=== PATIENT | male | born 1990 | race African-American/Black ===

== ENCOUNTER 2017-05-09 07:12 | Day surgery (SDC) | payer OTHER ==
[2017-05-09] MEDS ORDERED: CLINDAMYCIN 600 MG/50 ML 50 ML IV ONE (07:30)
[2017-05-09] MEDS ORDERED: LACTATED RINGERS 1,000 ML IV ONE ×2 (08:01→12:10)
[2017-05-09] MEDS ORDERED: KETOROLAC 30 MG/ML VIAL IVP ONE (09:00)
[2017-05-09] MEDS ORDERED: ACETAMINOPHEN 1,000 MG/100 ML 100 ML IV ONE (09:00)
[2017-05-09] MEDS ORDERED: ONDANSETRON 4 MG/2 ML VIAL IVP ONE (09:00)
[2017-05-09] MEDS ORDERED: LIDOCAINE-MPF 2% 5 ML VIAL IM ONE (09:00)
[2017-05-09] MEDS ORDERED: PROPOFOL 200 MG/20 ML VIAL IVP ONE (09:00)
[2017-05-09] MEDS ORDERED: KETAMINE 500 MG/10 ML VIAL IVP ONE (09:00)
[2017-05-09] MEDS ORDERED: fentaNYL 100 MCG/2 ML VIAL IVP ONE (09:00)
[2017-05-09] MEDS ORDERED: DEXAMETHASONE 4 MG/ML VIAL IVP ONE (09:00)
[2017-05-09] MEDS ORDERED: MIDAZOLAM 2 MG/2 ML VIAL IVP ONE (09:00)
[2017-05-09] MEDS ORDERED: BUPIVACAINE 0.25% PF 30 ML VIAL SUBQ ONE ×2 (09:46)
[2017-05-09] MEDS: fentaNYL 100 MCG/2 ML VIAL ONE ×2 (12:04→12:10)
--- NOTE | 2017-05-09 12:33 | XRAY Report ---
THREE VIEW RIGHT HAND: 05/09/2017 CLINICAL INDICATION: Postop. FINDINGS: AP, lateral, and oblique views of the right hand demonstrate posterior plate and screw fus ion of the 4th carpometacarpal joint. There is no evidence of acute fracture or immediate hardware co mplication. Splint material obscures fine osseous detail. IMPRESSION: POSTERIOR PLATE AND SCREW FUSION OF THE 4TH CARPOMETACARPAL JOINT. JOB #: [id number] EXT JOB #:[id number]
[2017-05-09] MEDS ORDERED: oxyCODONE 5 MG TABLET ONE (12:41)
[2017-05-09 13:27] VITALS: BP 123/73
--- NOTE | 2017-05-10 10:33 | OPERATIVE REPORT ---
DATE OF SURGERY: 05/09/2017 00:00:00 PREOPERATIVE DIAGNOSES 1. Right fourth carpometacarpal arthritis. 2. Right wrist carpal bossing. POSTOPERATIVE DIAGNOSES 1. Right fourth carpometacarpal arthritis. 2. Right wrist carpal bossing. PROCEDURES PERFORMED 1. Right fourth carpometacarpal arthrodesis. 2. Right wrist carpal boss excision. SURGEON: Lisandro Ashby MD. DIRECTOR OF CONSTRUCTION: Ginna Zamarripa MD. ANESTHESIA: General. POSTOPERATIVE PLAN: Ulnar gutter splint for 2 weeks. For 2-6 weeks, short ulnar gutter cast to allow for finger motion. At 6 weeks, he will get x-rays out of his cast. We will also advance his activity to perform range of motion exercises. Strengthening can begin at 3 months and when there is evidence of fusion. INDICATIONS FOR SURGERY: A 26-year-old male who sustained a fracture to the base of the fourth metacarpal in 05/2016. This was associated with a dislocation of the fifth metacarpal. He underwent a cast with a molded reduction , but went on to a symptomatic malunion and secondary arthritis of the fourth CMC. The fifth CMC was uninvolved. A CT scan confirmed subluxation and complete loss of joint space at the fourth, as well as an anatomic reduction and maintenance of the joint space at the fifth. Patient also developed a large boss in the dorsum of the wrist, which was irritated by tendon motion. The risks, benefits, and alternatives were discussed with the patient. His mom believes that the boss was symptomatic, as well as the joint itself being symptomatic and destroyed. I therefore recommended arthrodesis, as well as boss excision. The risks included pain, bleeding, infection, damage to nearby structures to include the dorsal ulnar branch, need for further surgery, malunion, nonunion. He signed a consent form. SURGICAL FINDINGS: A large boss was excised, complete destruction of the base of the fourth metacarpal articular surface was seen. IMPLANTS: 1/4 tubular plate by [employer] [facility], 2.7 mm screws x5, cortical fully threaded. ANTIBIOTICS: Weight based clindamycin. ESTIMATED BLOOD LOSS: 5 mL. URINE OUTPUT: Not recorded. INTRAVENOUS FLUIDS: 900 mL. TOURNIQUET TIME: 99 minutes at 200 mmHg. SPECIMENS: None. COMPLICATIONS: None. DISPOSITION: Stable to PACU. DEEP VENOUS THROMBOSIS PROPHYLAXIS: Early frequent ambulation. SCDs while in the hospital. PROCEDURE IN DETAIL: Patient was met in the preoperative area on the morning of the procedure. His operative extremity was signed, and consent was verified. He desired to proceed. He was brought to the operating room and surrendered to Anesthesia. Once general anesthesia had been obtained, he was placed in the supine position with a hand table. All bony prominences were well-padded. A tourniquet was applied to the upper arm. The arm was prepped and draped in the standard sterile fashion. A surgical timeout was held where we confirmed the patient's identity, procedure, allergies, antibiotics, images; all were in agreement and we proceeded. A 5 cm incision was made directly over the boss, and blunt scissor dissection was used down to the extensor tendons. The fourth extensor tendon with its accompanying commissural bands was identified. The tendon most readily was retracted radially. Therefore, dissected the tendons radially using the interval between the fourth and the fifth. We then came down onto the second capsule tissue, and a knife was used to longitudinally transect this. We dissected the capsular tissue and periosteum off of the base of the fourth, as well as the hamate, taking care to not dissect into the fifth CMC, third CMC, or the capitate joint. Only the capsule that was required for visualization was elevated. Satisfied with our exposure, we then used a rongeur to take down the carpal boss, saved those bone chips for later bone grafting. A rasp was then used to rasp the dorsal surface completely flat. This was collinear with the shaft of the fourth metacarpal. Satisfied with the boss excision, we then pulled traction on the fourth digit, and using sharp osteotomes and curettes, removed all of the remaining cartilage from the fourth CMC joint, taking care to not disrupt the fifth CMC joint. Following removal of the cartilage, 0.125 mm K-wire was brought in and perforated the hamate 5 times and the base of the fourth metacarpal 5 times. We then irrigated the wound copiously. I then placed bone graft within the fourth CMC joint. The plate was bent to contour to the fourth CMC joint prior to application, actually over-bent it slightly. The plate was then applied and X- rays were taken to confirm plate size and position. A K-wire was used to provisionally hold it in place. I then placed 2 screws into the hamate. I took 2 mm off of their measured length to ensure they did not dent the volar cortex. X-rays confirmed good plate position and screw position. There was excellent purchase on the screws. I then placed the next screw in most proximally towards the joint. This was done in compression fashion. X-rays confirmed position. I placed another screw in compression fashion in the second position from the joint into the fourth metacarpal. The first compression screw was loosened slightly prior to fully seating the second. The final screw was then placed further in the shaft, and x-rays confirmed screw position. We took oblique x-rays to confirm we did not disrupt the third or fifth ray and that the screw tips were not proud volarly at the hamate or fourth metacarpal. Satisfied with our imaging, we then lightly irrigated and closed in a layered fashion. The capsule was a very thick layer and provided a barrier between the plate and the extensor tendons. We then reapproximated the extensor tendons into their location and closed the skin with 4-0 nylon in a horizontal mattress ; 10 mL of 0.25% Marcaine was instilled about the wound. Xeroform and a sterile dressing was applied. An ulnar gutter splint was applied with the DIPs free to allow for slight motion. The patient was awakened and transferred to the recovery room. Flat plate x-rays were taken in the recovery room but were not available at time of dictation. JOB #: [id number] [facility] JOB #:[id number] AVELINA
== END 2017-05-09 07:13 | disposition home or self-care (01) ==
LOC: SDS 07:12
PROVIDERS: ATTEND Orthopaedic Surgery
PROC: 0PB Upper Bones, Excision (ICD-10-PCS; 2017-05-09)
PROC: 0RGU04Z Fusion of Right Metacarpophalangeal Joint with Internal Fixation Device, Open Approach (ICD-10-PCS; principal; 2017-05-09 09:00)
DX: M19.041 Primary osteoarthritis, right hand (principal); M77.9 Enthesopathy, unspecified; F17.210 Nicotine dependence, cigarettes, uncomplicated
CPT/HCPCS: 25130; 26843; 73130; A9270; C1713; J0131; J7120

== ENCOUNTER 2017-12-05 20:05 | Emergency (ER) | payer OTHER ==
[2017-12-05 20:14] VITALS: BP 134/83
[2017-12-05] MEDS ORDERED: HYDROcod/ACET 5/325 Prepack 4 PO STA (20:57)
[2017-12-05] MEDS ORDERED: HYDROcod/ACETAM 5/325 MG TABLET PO STA (20:57)
[2017-12-05] MEDS ORDERED: IBUPROFEN 800 MG TABLET PO STA (20:57)
--- NOTE | 2017-12-05 21:00 | ED Physician Documentation ---
PD HPI LOWER EXT INJURY - Stated complaint Stated Complaint: LEG PAIN - Chief complaint Chief Complaint: Ext Problem - History obtained from History obtained from: Patient - History of Present Illness PD HPI LOW EXT INJURY LOCATION: Right (He was playing softball and running the bases, he felt a pop in the right hamstring and has had progressive pain there especially with flexion of the leg ever since. He is able to walk and bear weight. No other injuries.) Review of Systems Constitutional: reports: Reviewed and negative Cardiac: reports: Reviewed and negative Respiratory: reports: Reviewed and negative PD PAST MEDICAL HISTORY - Past Medical History Past Medical History: No Cardiovascular: None Respiratory: Asthma Neuro: None Endocrine/Autoimmune: None GI: None : None HEENT: None Psych: None Musculoskeletal: None Derm: None - Past Surgical History Past Surgical History: Yes - Present Medications Home Medications: Ambulatory Orders Medication Instructions Recorded Confirmed HYDROcod/ACETAM 5/325 [[place] 5/325] 1 - 2 ea PO Q6H PRN #10 tablet 12/05/17 Ibuprofen [Motrin] 800 mg PO Q8H PRN #30 tablet 12/05/17 - Allergies Allergies/Adverse Reactions: Allergies Allergy/AdvReac Type Severity Reaction Status Date / Time Penicillins Allergy Rash Verified 12/05/17 20:11 - Social History Does the pt smoke?: Yes Smoking Status: Light tobacco smoker Does the pt drink ETOH?: Yes ETOH Use: Liquor Does the pt have substance abuse?: No - Immunizations Immunizations are current?: Yes - POLST Patient has POLST: Yes PD ED PE NORMAL - Vitals Vital signs reviewed: Yes - General General: Alert and oriented X 3, No acute distress - Extremities Extremities: Other (He is able to walk and bear weight but with a significant limp, he is focally tender over the mid right hamstring and has a lot of pain with flexion at the knee but is able to do so but not against much resistance.) - Neuro Neuro: Alert and oriented X 3, Normal speech Results - Vitals Vitals: Vital Signs - 24 hr 12/05/17 20:09 Temperature 36.8 C Heart Rate 80 Respiratory 15 Rate Blood Pressure 134/83 H O2 Saturation 99 Oxygen O2 Source Room air PD MEDICAL DECISION MAKING - Sepsis Event Vital Signs: Vital Signs - 24 hr 12/05/17 20:09 Temperature 36.8 C Heart Rate 80 Respiratory 15 Rate Blood Pressure 134/83 H O2 Saturation 99 Oxygen O2 Source Room air Departure - Departure Disposition: 01 Home, Self Care Clinical Impression: Tear of right hamstring Condition: Good Record reviewed to determine appropriate education?: Yes Instructions: ED Strain Muscle Ext Prescriptions: HYDROcod/ACETAM 5/325 [[place] 5/325] 1 - 2 ea PO Q6H PRN #10 tablet PRN Reason: Pain Ibuprofen [Motrin] 800 mg PO Q8H PRN #30 tablet PRN Reason: PAIN &/OR FEVER Comments[place] consideration for physical therapy if symptoms are persistent. Return for new or worsening symptoms. Your blood pressure was elevated today on check into the emergency department. This does not mean that you have hypertension, it is a common phenomenon to come to the emergency department and have elevated blood pressure. I recommend that you see your primary care physician within the week to have it rechecked when you are feeling better. Do not drink or drive while taking narcotic pain medication. Note that many narcotic pain relievers also contain Tylenol/acetaminophen. Please ensure that your total dose of acetaminophen from all sources does not exceed 3 g (3000 mg) per day. You may get constipated while on this medication. Take a stool softener such as Colace twice a day while you are on it. Also add an [id number]-[id number] laxative such as senna or MiraLAX on any day that you do not have a bowel movement. If you received a narcotic pain medication or sedative while in the emergency department, do not drive for the next 24 hours. Forms: Activity restrictions
== END 2017-12-05 21:36 | disposition home or self-care (01) ==
LOC: ED 20:05
DX: S76.811A Strain of other specified muscles, fascia and tendons at thigh level, right thigh, initial encounter (principal); X50.1XXA Overexertion from prolonged static or awkward postures, initial encounter; Y93.64 Activity, baseball; Y92.320 Baseball field as the place of occurrence of the external cause; J45.909 Unspecified asthma, uncomplicated; F17.200 Nicotine dependence, unspecified, uncomplicated
CPT/HCPCS: 99283; A9270

== ENCOUNTER 2018-07-19 12:56 | Emergency (ER) | payer OTHER ==
[2018-07-19 13:10] VITALS: BP 132/69
--- NOTE | 2018-07-19 13:24 | ED Physician Documentation ---
PD HPI LOWER EXT INJURY - Stated complaint Stated Complaint: RT KNEE PAIN - Chief complaint Chief Complaint: Ext Problem - History obtained from History obtained from: Patient PD PAST MEDICAL HISTORY - Past Medical History Past Medical History: Yes Cardiovascular: None Respiratory: Asthma Neuro: None Endocrine/Autoimmune: None GI: None : None HEENT: None Psych: None Musculoskeletal: None Derm: None - Past Surgical History Past Surgical History: Yes - Present Medications Home Medications: Ambulatory Orders Medication Instructions Recorded Confirmed No Known Home Medications 07/19/18 07/19/18 - Allergies Allergies/Adverse Reactions: Allergies Allergy/AdvReac Type Severity Reaction Status Date / Time Penicillins Allergy Rash Verified 07/19/18 13:10 - Social History Does the pt smoke?: Yes Smoking Status: Current every day smoker Does the pt drink ETOH?: Yes Does the pt have substance abuse?: No - Immunizations Immunizations are current?: Yes - POLST Patient has POLST: Yes Results - Vitals Vitals: Vital Signs - 24 hr 07/19/18 13:08 Temperature 36.8 C Heart Rate 94 Respiratory 20 Rate Blood Pressure 132/69 H O2 Saturation 98 Oxygen O2 Source Room air
--- NOTE | 2018-07-19 13:34 | ED Physician Documentation ---
PD HPI LOWER EXT INJURY - Stated complaint Stated Complaint: RT KNEE PAIN - Chief complaint Chief Complaint: Ext Problem - History obtained from History obtained from: Patient - History of Present Illness PD HPI LOW EXT INJURY LOCATION: Right, Knee Type of injury: Other (going up for a rebound) Where injury occurred: Other (GYM) Timing - onset: Last night Timing - duration: Hours Timing - details: Abrupt onset, Still present Improved by: Rest, Immobilization Worsened by: Moving, Palpating Associated symptoms: No: Weakness, Numbness, Tingling, Swelling Contributing factors: No: Anticoagulated Similar symptoms before: Diagnosis (knee sprain) Recently seen: Not recently seen - Additional information Additional information: 27-year-old previously well male was going up for a rebound playing basketball last night when he had sudden onset of pain in his knee he thinks he may have b een struck by another player he is uncertain about this he does remember that he was not able to complete what he was going up to do and came down with severe pain. He has been having to walk with crutches since last night. He has most of his pain along the medial aspect of his right knee. Review of Systems Constitutional: denies: Fever Eyes: denies: Decreased vision Ears: denies: Ear pain Nose: denies: Congestion Throat: denies: Sore throat Cardiac: denies: Chest pain / pressure, Palpitations Respiratory: denies: Dyspnea, Cough GI: denies: Abdominal Pain, Nausea, Vomiting : denies: Dysuria Skin: denies: Rash Musculoskeletal: reports: Extremity pain, Joint pain, Pain with weight bearing. denies: Neck pain, Back pain Neurologic: denies: Generalized weakness, Focal weakness, Numbness PD PAST MEDICAL HISTORY - Past Medical History Past Medical History: Yes Cardiovascular: None Respiratory: Asthma Neuro: None Endocrine/Autoimmune: None GI: None : None HEENT: None Psych: None Musculoskeletal: None Derm: None - Past Surgical History Past Surgical History: Yes - Present Medications Home Medications: Ambulatory Orders Medication Instructions Recorded Confirmed No Known Home Medications 07/19/18 07/19/18 - Allergies Allergies/Adverse Reactions: Allergies Allergy/AdvReac Type Severity Reaction Status Date / Time Penicillins Allergy Rash Verified 07/19/18 13:10 - Social History Does the pt smoke?: Yes Smoking Status: Current every day smoker Does the pt drink ETOH?: Yes Does the pt have substance abuse?: No - Immunizations Immunizations are current?: Yes - POLST Patient has POLST: Yes PD ED PE NORMAL - Vitals Vital signs reviewed: Yes (hypertensive ) - General General: No acute distress, Well developed/nourished - HEENT HEENT: Atraumatic, PERRL, EOMI - Respiratory Respiratory: No respiratory distress - Derm Derm: Normal color, Warm and dry, No rash - Extremities Extremities: No deformity, No edema, Other (exam of the right knee shows no obvious swelling or joint effusion and the ACL has a solid endpoint. The MCL is stable and there is pain with strech of the MCL. distal n/v is intact. ) - Neuro Neuro: Alert and oriented X 3, genetics nurse 2-12 intact, No motor deficit, No sensory deficit, Normal speech Eye Opening: Spontaneous Motor: Obeys Commands Verbal: Oriented GCS Score: 15 - Psych Psych: Normal mood, Normal affect Results - Vitals Vitals: Vital Signs - 24 hr 07/19/18 13:08 Temperature 36.8 C Heart Rate 94 Respiratory 20 Rate Blood Pressure 132/69 H O2 Saturation 98 Oxygen O2 Source Room air - Rads (name of study) right knee Radiology: Prelim report reviewed (Impression: Negative knee radiography.), EMP read indepedently, See rad report PD MEDICAL DECISION MAKING - ED course Complexity details: reviewed results, re-evaluated patient, considered differential, d/w patient ED course: 27-year-old male with an injury to the right knee appears to have pain to stretch of the medial collateral ligaments and the rest of the ligaments appear stable. He is placed into a knee immobilizer and we will have him follow-up wit h orthopedics. Departure - Departure Disposition: 01 Home, Self Care Clinical Impression: Knee MCL sprain Qualifiers: Encounter type: initial encounter Laterality: right Qualified Code(s): S83.411A - Sprain of medial collateral ligament of right knee, initial encounter Instructions: ED Sprain Knee Collateral Ligaments Follow-Up: JAMIE TAYLOR [Primary Care Provider] - [facility] [Provider Group]
--- NOTE | 2018-07-19 14:46 | XRAY Report ---
Reason: medial collateral injury Procedure Date: 07/19/2018 Accession Number: [id number] / [id number] Procedure: XR - Knee 4 View RT CPT Code: FULL RESULT: EXAM: RIGHT KNEE RADIOGRAPHY EXAM DATE: 07/19/2018 02:32 PM. CLINICAL HISTORY: Medial collateral injury. COMPARISON: None. TECHNIQUE: 4 views. FINDINGS: Bones: No fractures or bone lesions. Joints: No effusion. No subluxations. Soft Tissues: No soft tissue swelling. IMPRESSION: Negative knee radiography. [facility]
== END 2018-07-19 15:01 | disposition home or self-care (01) ==
LOC: ED 12:56
DX: S83.411A Sprain of medial collateral ligament of right knee, initial encounter (principal); X50.1XXA Overexertion from prolonged static or awkward postures, initial encounter; Y93.39 Activity, other involving climbing, rappelling and jumping off; Y93.67 Activity, basketball; F17.200 Nicotine dependence, unspecified, uncomplicated
CPT/HCPCS: 29505; 99283

== ENCOUNTER 2018-08-13 11:53 | Outpatient (CLI) | payer OTHER ==
--- NOTE | 2018-08-13 21:03 | MRI Report ---
Reason: PAIN IN RIGHT KNEE Procedure Date: 08/13/2018 Accession Number: [id number] / [id number] Procedure: MRI - Knee RT W/O CPT Code: FULL RESULT: EXAM: RIGHT KNEE MRI WITHOUT CONTRAST EXAM DATE: 08/13/2018 12:53 PM. CLINICAL HISTORY: Right knee pain. COMPARISON: KNEE RT W/O 05/02/2017 9:00 AM. TECHNIQUE: Multiplanar, multisequence T1-weighted and fluid-sensitive sequences of the knee without contrast. Other: None. FINDINGS: Bones and articular cartilage: Bone contusion and small subcortical fracture at the anterolateral aspect of the lateral femoral condyle. Bone contusion at the posterior aspect of the lateral tibial plateau. Articular cartilage is within normal limits. Borderline patella lisbeth is present. Medial Meniscus: The medial meniscus is intact. Lateral Meniscus: The lateral meniscus is intact. Cruciate Ligaments: The anterior cruciate ligament is ruptured. The posterior cruciate ligament is intact. Collateral Ligaments: The tibial (medial) collateral ligament is intact. Sprain of the proximal aspect of the medial meniscal femoral ligament. The medial meniscal tibial ligament is intact. The lateral collateral ligament complex structures are intact. Tendons: The quadriceps, patellar, semimembranosus, and popliteus tendons are unremarkable. Musculature: No edema or fatty atrophy. Other: Small joint effusion. No popliteal cyst. No loose bodies. The medial and lateral retinacula are intact. The subcutaneous tissues and fat pads are unremarkable. IMPRESSION: 1. Rupture of the anterior cruciate ligament. 2. Bone contusion and small nondisplaced, nondepressed subcortical fracture at the lateral femoral condyle. Bone contusion at the posterior aspect of the lateral tibial plateau. 3. Borderline patella lisbeth. 4. No meniscal tear. 5. Small joint effusion. [facility] MUSCULOSKELETAL RADIOLOGY SECTION
== END 2018-08-13 11:54 | disposition home or self-care (01) ==
LOC: DI 11:53
PROVIDERS: ATTEND Physician Assistant
DX: S83.511A Sprain of anterior cruciate ligament of right knee, initial encounter (principal); S72.424A Nondisplaced fracture of lateral condyle of right femur, initial encounter for closed fracture; S80.11XA Contusion of right lower leg, initial encounter; M25.461 Effusion, right knee

== ENCOUNTER 2018-11-07 05:50 | Day surgery (SDC) | payer OTHER ==
[2018-11-07] MEDS ORDERED: CLINDAMYCIN 600 MG/50 ML 50 ML IV ONE (06:38)
--- NOTE | 2018-11-07 06:57 | ANESTHESIA ---
Pre-Anesthesia VS, & Labs - Diagnosis right knee acl tear - Procedure right ant. cruciate ligament repair Vital Signs: Temp Pulse Resp BP Pulse Ox 36.2 C L 76 18 125/90 H 96 11/07/18 06:34 11/07/18 06:34 11/07/18 06:34 11/07/18 06:34 11/07/18 06:34 Height 5 ft 9.25 in Weight (kg) 93.89 kg Body Mass Index 29.5 - NPO >8 hours Home Medications and Allergies No Known Home Medications 07/19/18 Allergies/Adverse Reactions: Allergies Allergy/AdvReac Type Severity Reaction Status Date / Time Penicillins Allergy Rash Verified 10/28/18 09:29 Anes History & Medical History - Anesthetic History Anesthesia Complications: reports: No previous complications Family history of Anesthesia Complications: Denies Family history of Malignant Hyperthermia: Denies - Medical History Cardiovascular: reports: None Pulmonary: reports: None Gastrointestinal: reports: None Urinary: reports: None Neuro: reports: None Musculoskeletal: reports: Other Endocrine/Autoimmune: reports: None Skin: reports: None Smoking Status: Current every day smoker - Surgical History Orthopedic: Other Exam General: Alert, Oriented x3, Cooperative, No acute distress Dental: WNL Mouth Openin Fingerbreadth Neck Mobility: Normal Mallampati classification: II Thyromental Distance: greater than 6 cm Respiratory: Lungs clear, Normal breath sounds, No respiratory distress, No accessory muscle use Cardiovascular: Regular rate, Normal S1, Normal S2, No murmurs Plan Anesthesia Type: General Consent for Procedure(s) Verified and Reviewed: No Code Status: Attempt Resuscitation ASA classification: 2-Mild systemic disease Is this case an emergency?: No
[2018-11-07] MEDS ORDERED: BUPIVACAINE 0.25% PF 30 ML VIAL ONE (07:15)
[2018-11-07] MEDS ORDERED: LACTATED RINGERS 1,000 ML IV ONE ×2 (07:15→09:41)
[2018-11-07] MEDS ORDERED: EPINEPHrine 1 MG/ML AMP ONE ×2 (07:15→07:22)
[2018-11-07] MEDS ORDERED: MIDAZOLAM 2 MG/2 ML VIAL IVP ONE (08:00)
[2018-11-07] MEDS ORDERED: ROCURONIUM 50 MG/5 ML VIAL IVP ONE (08:00)
[2018-11-07] MEDS ORDERED: LIDOCAINE-MPF 2% 5 ML VIAL IM ONE (08:00)
[2018-11-07] MEDS ORDERED: KETOROLAC 30 MG/ML VIAL IVP ONE (08:00)
[2018-11-07] MEDS ORDERED: ACETAMINOPHEN 1,000 MG/100 ML 100 ML IV ONE (08:00)
[2018-11-07] MEDS ORDERED: ONDANSETRON 4 MG/2 ML VIAL IVP ONE (08:00)
[2018-11-07] MEDS ORDERED: DEXAMETHASONE 4 MG/ML VIAL IVP ONE (08:00)
[2018-11-07] MEDS ORDERED: fentaNYL 100 MCG/2 ML VIAL IVP ONE (08:00)
[2018-11-07] MEDS ORDERED: PROPOFOL 200 MG/20 ML VIAL IVP ONE (08:00)
[2018-11-07] MEDS ORDERED: BUPIVACAINE 0.25% PF 30 ML VIAL SUBQ ONE ×2 (08:36)
[2018-11-07] MEDS ORDERED: oxyCODONE 5 MG TABLET PO PRN (10:46)
[2018-11-07] MEDS ORDERED: ONDANSETRON 4 MG/2 ML VIAL IVP PRN (10:46)
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
[2018-11-07] MEDS: fentaNYL 100 MCG/2 ML VIAL ONE ×2 (11:27→11:34)
[2018-11-07] MEDS ORDERED: oxyCODONE 5 MG TABLET ONE (12:29)
[2018-11-07 13:10] VITALS: BP 128/84
== END 2018-11-07 05:51 | disposition home or self-care (01) ==
LOC: SDS 05:50
PROVIDERS: ATTEND Orthopaedic Surgery
PROC: 0LBQ0ZZ Excision of Right Knee Tendon, Open Approach (ICD-10-PCS; 2018-11-07)
PROC: 0SBC4ZZ Excision of Right Knee Joint, Percutaneous Endoscopic Approach (ICD-10-PCS; 2018-11-07)
PROC: 0MRN47Z Replacement of Right Knee Bursa and Ligament with Autologous Tissue Substitute, Percutaneous Endoscopic Approach (ICD-10-PCS; principal; 2018-11-07 07:30)
DX: S83.511A Sprain of anterior cruciate ligament of right knee, initial encounter (principal); F17.200 Nicotine dependence, unspecified, uncomplicated
CPT/HCPCS: 29888; A9270; C1713; J0131; J7120